=== PATIENT | male | born 1960 | race Asian ===

== ENCOUNTER 2025-05-29 13:55 | Emergency (ER) | payer SELFPAY ==
[2025-05-29 13:57] VITALS: BP 136/86
[2025-05-29 14:17] VITALS: BMI 25.0
--- NOTE | 2025-05-29 14:37 | ED.GENMED ---
History of Present Illness
General
Chief Complaint: Back Pain
Time Seen by Provider: 05/29/25 14:14
History of Present Illness
History of Present Illness:
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 Denies head strike. He denies
any lower extremity paresthesias or radiation of pain. No loss of bladder or bowel function. Pain is located to the mid lumbar spine.
Past History
Past History
ED Past Medical History: None
ED Past Surgical History: None
Social History
Tobacco: Smoker
Living: with family
Employment: Employed
Review of Systems
Review of Systems
Allergies reviewed?: Yes
All Other Systems: ROS reviewed and negative except as documented in HPI and ROS
Phy Exam
Physical Exam
Physical Exam:
GEN: Well appearing, NAD, WDWN
HEENT: Oral mucosa moist, no scleral icterus
Cardiac: Regular rate
Lung: No respiratory distress, no tachypnea
MSK: No gross deformity or injuries. No midline lumbar spine tenderness, lumbar range of motion limited secondary to pain.
Skin: Good color, no pallor or jaundice, no rashes
Neuro: AO x3, moves all extremities freely, bilateral lower extremity strength 5 out of 5 in all kenny and symmetric, no sensory loss
Psych: Calm, cooperative
Course
Orders/Labs/Results
Orders:
Orders
05/29/25 14:37
Acetaminophen [Tylenol] 1,000 mg PO NOW STA
Cyclobenzaprine HCl [Flexeril] 10 mg PO NOW STA
Ketorolac [Toradol] 30 mg IM NOW STA
CR Lumbar Spine Comp Min 4 Vw* Urgent
Comment:
Reason For Exam: fall low back pain
Vital Signs
Initial and Last Documented VS:
Initial Vital Signs
Temp Pulse Resp BP Pulse Ox
98.0 F 72 20 136/86 99
05/29/25 13:57 05/29/25 13:57 05/29/25 13:57 05/29/25 13:57 05/29/25 13:57
Last Documented Vital Signs
Temp Pulse Resp BP Pulse Ox
98.0 F 72 20 136/86 99
05/29/25 13:57 05/29/25 13:57 05/29/25 13:57 05/29/25 13:57 05/29/25 14:37
MDM/Problems Addressed
MDM/Problems Addressed:
X-rays independently interpreted by me show no evidence for compression fracture. Discussed supportive care for muscle strain. He has no etiology to suggest disc herniation
*Pulse Oximetry
SaO2: 99
Oxygen Mode of Delivery: Room air
Patient hypoxic: no
*Critical Care Note
Total Time (30-74mins, 75-104mins- exclusive of procedures): Not Applicable
ED Attending Note
-
Portions of this chart may have been created with voice recognition software.� Occasional wrong word or��sound alike� substitutions may have occurred due to the inherent limitations of voice recognition software.
Discharge Plan
Departure
Patient Disposition: Home (Routine Discharge)
Date of Disposition: 05/29/25
Time of Disposition: 15:47
Patient with high blood pressure during this ER visit?: No
Discharge Problem:
Lumbar strain
Instructions: Low Back Pain (DC)
Prescriptions:
New
diclofenac sodium 75 mg tablet,delayed release (DR/EC)
75 mg PO BID Qty: 20 0RF
oxycodone-acetaminophen [Percocet] 5-325 mg tablet
1 tab PO Q6HPRN PRN (Reason: pain) Qty: 8 0RF
methocarbamol 750 mg tablet
750 - 1,500 mg PO Q8H PRN (Reason: muscle strain) Qty: 20 0RF
Referrals:
JOSE G HADLEY MD [Family Provider, Internal Medicine]
Stand Alone Forms: Return to Work
Interventions
Interventions:
*General Assessment Last Done: 05/29/25 13:57
*Neglect/Abuse Screening Last Done: 05/29/25 14:17
*ED- Fall Risk Assessment Last Done: 05/29/25 14:17
*ED COVID-19 Vaccine History Last Done: 05/29/25 14:17
*Nursing Disposition Last Done: 05/29/25 16:07
ED-Musculoskeletal Assessment Last Done: 05/29/25 14:17
Discharge Date and Time
Discharge Date/Time: 05/29/25 16:07
Print Language: FRISIAN
[2025-05-29] MEDS: FLEXERIL 10 MG PO (14:50)
[2025-05-29] MEDS: TORADOL 30 MG IM (14:50)
[2025-05-29] MEDS: TYLENOL 1000 MG PO (14:50)
== END 2025-05-29 16:07 | disposition home or self-care (01) ==
LOC: EMR 13:55
PROVIDERS: EMERGENCY PHYSICIAN Emergency Medicine; FAMILY PHYSICIAN Student in an Organized Health Care Education/Training Program
DX: S39.012A Strain of muscle, fascia and tendon of lower back, initial encounter (principal); W54.1XXA Struck by dog, initial encounter; W18.39XA Other fall on same level, initial encounter; Y99.0 Civilian activity done for income or pay; F17.200 Nicotine dependence, unspecified, uncomplicated
CPT/HCPCS: 96372; 99284; 72110